=== PATIENT | female | born 1975 | race Asian ===

== ENCOUNTER → 2022-03-08 | Day surgery (SDC) | payer OTHER ==
[~2022-03-08] VITALS: Ht 144.8 cm; Wt 44.9 kg
[~2022-03-08] MED LIST: MULTIVITAMINS1 EAC2 PO
[2022-03-08 09:47] LABS: HCG (URINE) SCREEN NEGATIVE (NEGATIVE)
== END | disposition home or self-care (01) ==
LOC: FAS 09:19
PROVIDERS: Anesthesiology
DX: Z12.11 Encounter for screening for malignant neoplasm of colon (principal); D12.8 Benign neoplasm of rectum; K64.4 Residual hemorrhoidal skin tags; K21.9 Gastro-esophageal reflux disease without esophagitis
CPT/HCPCS: 84703; J2704; J7120